=== PATIENT | female | born 1975 | race Caucasian/White ===

== ENCOUNTER 2019-04-12 09:42 | Emergency (ER) | payer OTHER ==
[~2019-04-12] VITALS: Ht 160 cm; Wt 79.4 kg
[2019-04-12 09:53] VITALS: Ht 160 cm; Wt 79.4 kg
[2019-04-12 10:43] LABS: BASOPHIL % 0.5 % (0-2); PLATELET COUNT 292 x10^3mcL (130-400); RED CELL DISTRIBUTION WIDTH 13.5 % (11.5-14.5)
[2019-04-12 10:58] LABS: CALCIUM 8.5 mg/dL (8.5-10.1); CARBON DIOXIDE 27.4 mmol/L (21-32); CHLORIDE SERUM 103 mmol/L (98-107); CREATININE SERUM 0.7 mg/dL (0.6-1.0); GFR1 > 60 mL/min; GLUCOSE SERUM 104 mg/dL (74-106); POTASSIUM SERUM 3.6 mmol/L (3.5-5.1); SODIUM SERUM 140 mmol/L (136-145)
[2019-04-12 11:03] LABS: ALBUMIN 3.7 g/dL (3.4-5.0); ALKALINE PHOSPHATASE 95 U/L (46-116); ALT/SGPT 23 U/L (14-59); AST/SGOT 16 U/L (15-37); BILIRUBIN TOTAL 0.4 mg/dL (0.20-1.00); LIPASE 74 IU/L (73-393); TOTAL PROTEIN, SERUM 7.4 g/dL (6.4-8.2)
[2019-04-12 11:04] LABS: UA SPECIFIC GRAVITY 1.025 (1.005-1.035); microscopic required? YES; urine erythrocyte 3+ (NEGATIVE)
[2019-04-12 13:17] VITALS: BP 117/69
== END 2019-04-12 13:17 | disposition home or self-care (01) ==
LOC: ED 09:42
PROVIDERS: Emergency Medicine
DX: N20.0 Calculus of kidney (principal); E03.9 Hypothyroidism, unspecified
CPT/HCPCS: J1885; J2405; J7030